=== PATIENT | female | born 1985 | race Caucasian/White ===

== ENCOUNTER → 2020-03-06 | Outpatient (CLI) | payer OTHER ==
[~2020-03-06] MED LIST: DOXYCYCLINE 10100 MG PO; METRONIDAZOLE500 MG PO; NO HOME MEDICATIONS; NORCO 325 MG-7.1 TAB PO; PEPCID 20MG TAB20 MG PO; PHENERGAN 25 TA25 MG PO; PHENERGAN25 MG RC; PRENATAL VITAMI1 TA5 PO; PRENATAL1 TA1 PO; ZOFRAN ODT4 MG PO
== END ==
LOC: COL.RAD 08:12
DX: M17.12 Unilateral primary osteoarthritis, left knee (principal)